=== PATIENT | male | born 1930 | race Caucasian/White ===

== ENCOUNTER 2018-05-09 15:30 | Emergency (ER) | payer OTHER ==
--- NOTE | 2018-05-09 16:16 | EDPHY ---
H & P Time Seen by Provider: 05/09/18 16:13 HPI/ROS: CHIEF COMPLAINT: Shortness of breath HISTORY OF PRESENT ILLNESS: Patient is an 87-year-old male on Eliquis with a history of pulmonary embolus x2 at the the [facility] emergency department with intermittent episodes of shortness of breath. Patient had his 1st pulmonary embolus in 2011. He was treated on Coumadin for 6 months and then the medicine was discontinued. He had a secondary pulmonary embolus in November of 2014 and was admitted to [facility]. He was started on Eliquis and has been on it since that time. Patient is visiting his family from [place]. He came to [place] and [place]. Since that time he has been having mild shortness of breath. Over the past 10 days his symptoms have worsened. He describes shortness of breath coming on suddenly. It is almost as if he is having"wheezing" episode. It then resolves. He has no associated chest pain. No leg pain or swelling. REVIEW OF SYSTEMS: 10 systems were reveiwed and are negative with the exception of the elements mentioned in the history of present illness. Past Medical/Surgical History: Includes pulmonary embolus, mitral regurgitation, hypertension, possible pulmonary hypertension, iron deficiency anemia, migraine, dyslipidemia, lower extremity edema Smoking Status: Never smoked Physical Exam: Vitals noted GENERAL: Well-appearing, in no acute distress, alert. HEENT: Eyes normal to inspection, normal pharynx, no signs of dehydration. NECK: Normal, supple. RESPIRATORY: Clear to auscultation bilaterally, no rales, rhonchi or wheezing. CVS: Regular rate and rhythm, no rubs, murmurs, or gallops. ABDOMEN: Soft, nontender, nondistended, no organomegaly. BACK: Normal to inspection, no CVA tenderness. SKIN: Normal color, no rash, warm, dry. No pallor. EXTREMITIES: No pedal edema, no calf tenderness, no Homans sign or cords, no joint swelling. NEURO/PSYCH: Alert and oriented, normal mood and affect, normal motor sensory exam. No obvious cranial nerve deficit. Constitutional: Initial Vital Signs Temperature (C) 36.3 C 05/09/18 15:35 Heart Rate 70 05/09/18 15:35 Respiratory Rate 16 05/09/18 15:35 Blood Pressure 138/80 H 05/09/18 15:35 O2 Sat (%) 91 L 12/29/18 15:35 O2 Delivery Mode Room Air Allergies/Adverse Reactions: ciprofloxacin [From Cipro] Allergy (Verified 05/09/18 15:35) ciprofloxacin HCl [From Cipro] Allergy (Verified 05/09/18 15:35) Home Medications: Medication Instructions Recorded Ascorbic Acid [Vitamin C 500 mg 2,000 mg PO DAILY 11/14/14 (*)] Flurouracil 0.5% Cr 1 vesna TP DAILY PRN 11/14/14 Furosemide [Lasix 20 MG (*)] 20 mg PO DAILY PRN 11/14/14 Herbals/Supplements -Info Only 1 tab PO AD 11/14/14 Ibuprofen [Motrin (*)] 200 mg PO Q6 PRN 11/14/14 Lisinopril [Zestril 10 mg (*)] 10 mg PO DAILY 11/14/14 Naproxen [Naprosyn] 500 mg PO BID PRN 11/14/14 Qbnkgcue-Wr-Xo Oxide 1 vesna TP DAILY PRN 11/14/14 [place]-3 Fatty Acids [Fish Oil 1000 1,000 mg PO DAILY 11/14/14 mg (*)] Omeprazole [Prilosec 20 mg] 20 mg PO DAILY 11/14/14 Prochlorperazine Maleate 10 mg PO Q6 PRN 11/14/14 [Compazine 10mg (*)] Simvastatin [Zocor] 20 mg PO HS 11/14/14 Triamcinolone 0.1% Cream (RX) 1 applic TP DAILY PRN 11/14/14 Ubidecarenone [Coenzyme Q10] 1 cap PO DAILY 11/14/14 Verapamil ER [Calan SR/ER 180MG 180 mg PO HS 11/14/14 (*)] diphenhydrAMINE [Benadryl 25 MG 25 mg PO Q6 PRN 11/14/14 (*)] Apixaban [Eliquis] 5 mg PO BID 180 Days tablet 11/16/14 Apixaban [Eliquis] 10 mg PO BID #14 tab 11/16/14 Medical Decision Making - Diagnostics Imaging Results: Imaging Impressions Chest X-Ray 05/09/18 16:51 Impression: 1. Basilar subsegmental atelectasis without acute cardiopulmonary process. 2. Nodular density measuring 1.2 cm in the retrocardiac airspace likely corresponds to a granuloma seen on old chest CT. Repeat chest CT already ordered to exclude PE. Chest/Thorax CTA 05/09/18 17:22 Impression: 1. No evidence of thrombopulmonary embolic disease. 2. Mild airways disease and minimal posterior dependent atelectasis. 3. No pneumonia or edema. Findings discussed with emergency department physician, Viji Gotti MD on May 09, 2018 at 1838 hours. ED Course/Re-evaluation: In the emergency department I discussed possible etiologies with the patient. I answered all his questions. IV was placed. Laboratory studies were obtained. EKG and chest x-ray were ordered. I reviewed the patient's medical record from November of 2014. EKG: Sinus rhythm at 68. Normal axis. Prolonged NM interval. Right bundle branch block, left anterior fascicular block I compared this EKG with an EKG from 11/13/2014. At that time the patient had a first-degree AV block as well as incomplete right bundle branch block and left anterior fascicular block. The patient's CBC was unremarkable. The chemistry panel was notable for slightly low carbon dioxide 18. Chloride is 112. Patient's D-dimer is 0.62. Initial troponin was 0.23. However, the tech informed that the blood sample was odd when she read the test. A repeat troponin was ordered. Repeat troponin 0.02. CT angiogram of the chest: Please refer the dictated report. No acute disease noted. Repeat EKG is unchanged from the 1st EKG. Repeat troponin is 0.01. I discussed the results with the patient. I answered all his questions. He was doing well on recheck. He was instructed follow up with both Cardiology and pulmonology. He was given warnings prior to leaving. Differential Diagnosis: My differential includes but is not limited to pulmonary embolus, ACS, acute DE , dysrhythmia, bronchitis, pneumonia, CHF - Data Points Laboratory Results: Laboratory Results 05/09/18 16:14 05/09/18 16:14 05/09/18 05/09/18 05/09/18 19:04 17:51 17:36 WBC RBC Hgb Hct MCV MCH MCHC RDW Plt Count MPV Neut % (Auto) Lymph % (Auto) [place] % (Auto) Eos % (Auto) Baso % (Auto) Nucleat RBC Rel Count Absolute Neuts (auto) Absolute Lymphs (auto) Absolute Monos (auto) Absolute Eos (auto) Absolute Basos (auto) Absolute Nucleated RBC Immature Gran % Immature Gran # PT INR APTT D-Dimer Sodium Potassium Chloride Carbon Dioxide Anion Gap BUN Creatinine Estimated GFR Glucose Calcium POC Troponin I 0.01 ng/mL ng/mL 0.02 ng/mL ng/mL 0.23 ng/mL H ng/mL (0.00-0.08) (0.00-0.08) (0.00-0.08) NT-Pro-B Natriuret Pep 05/09/18 05/09/18 05/09/18 16:14 16:14 16:14 WBC 7.52 10^3/uL 10^3/uL (3.80-9.50) RBC 4.88 10^6/uL 10^6/uL (4.40-6.38) Hgb 15.6 g/dL g/dL (13.7-17.5) Hct 45.9 % % (40.0-51.0) MCV 94.1 fL fL (81.5-99.8) MCH 32.0 pg pg (27.9-34.1) MCHC 34.0 g/dL g/dL (32.4-36.7) RDW 13.6 % % (11.5-15.2) Plt Count 194 10^3/uL 10^3/uL (150-400) MPV 10.4 fL fL (8.7-11.7) Neut % (Auto) 47.2 % % (39.3-74.2) Lymph % (Auto) 36.7 % % (15.0-45.0) [place] % (Auto) 12.6 % % (4.5-13.0) Eos % (Auto) 2.0 % % (0.6-7.6) Baso % (Auto) 1.1 % % (0.3-1.7) Nucleat RBC Rel Count 0.0 % % (0.0-0.2) Absolute Neuts (auto) 3.55 10^3/uL 10^3/uL (1.70-6.50) Absolute Lymphs (auto) 2.76 10^3/uL 10^3/uL (1.00-3.00) Absolute Monos (auto) 0.95 10^3/uL H 10^3/uL (0.30-0.80) Absolute Eos (auto) 0.15 10^3/uL 10^3/uL (0.03-0.40) Absolute Basos (auto) 0.08 10^3/uL 10^3/uL (0.02-0.10) Absolute Nucleated RBC 0.00 10^3/uL 10^3/uL (0-0.01) Immature Gran % 0.4 % % (0.0-1.1) Immature Gran # 0.03 10^3/uL 10^3/uL (0.00-0.10) PT 15.0 SEC SEC (12.0-15.0) INR 1.16 (0.83-1.16) APTT 31.6 SEC SEC (23.0-38.0) D-Dimer 0.62 ug/mLFEU H ug/mLFEU (0.00-0.50) Sodium 138 mEq/L mEq/L (135-145) Potassium 4.7 mEq/L mEq/L (3.5-5.2) Chloride 112 mEq/L H mEq/L (97-110) Carbon Dioxide 18 mEq/l L mEq/l (22-31) Anion Gap 8 mEq/L mEq/L (6-14) BUN 27 mg/dL H mg/dL (7-23) Creatinine 1.2 mg/dL mg/dL (0.7-1.3) Estimated GFR 58 Glucose 116 mg/dL H mg/dL (70-100) Calcium 10.2 mg/dL mg/dL (8.5-10.4) POC Troponin I NT-Pro-B Natriuret Pep 124 pg/mL pg/mL (0-450) Point of Care Test Results: Chemistry 05/09/18 05/09/18 05/09/18 19:04 17:51 17:36 POC Troponin I 0.01 ng/mL ng/mL 0.02 ng/mL ng/mL 0.23 ng/mL H ng/mL (0.00-0.08) (0.00-0.08) (0.00-0.08) Departure - Departure Disposition: Home, Routine, Self-Care Clinical Impression: Shortness of breath Condition: Good Instructions: Dyspnea (ED) Additional Instructions: You need close follow-up with your world language teacher and ultrasonic welding machine operator. Return to the emergency department with increasing chest pain, shortness of breath, fever or any other concerns. Referrals: JAMES HART [Other] - 5-7 days, call for appt.
[2018-05-09 16:58] LABS: PLATELET COUNT 194 10^3/uL (150-400)
[2018-05-09 17:16] LABS: INR 1.16 (0.83-1.16)
[2018-05-09] MEDS ORDERED: IOPAMIDOL (ISOVUE 370) 100 ML BTL IV ONE (17:42)
[2018-05-09 19:47] VITALS: BP 149/88
--- NOTE | 2018-05-09 20:16 | CPEKG ---
Test Reason : OPEN Blood Pressure : / mmHG Vent. Rate : 068 BPM Atrial Rate : 068 BPM P-R Int : 265 ms QRS Dur : 151 ms QT Int : 415 ms P-R-T Axes : 047 -42 -01 degrees QTc Int : 442 ms Sinus rhythm Prolonged AL interval RBBB and LAFB Confirmed by Viji Gotti ([id number]) on 05/09/2018 8:16:05 PM Referred By: Confirmed By:Viji Gotti
--- NOTE | 2018-05-09 20:16 | CPEKG ---
Test Reason : OPEN Blood Pressure : / mmHG Vent. Rate : 060 BPM Atrial Rate : 061 BPM P-R Int : 279 ms QRS Dur : 155 ms QT Int : 438 ms P-R-T Axes : 029 -31 -19 degrees QTc Int : 438 ms Sinus rhythm Prolonged CA interval Right bundle branch block Confirmed by Viji Gotti ([id number]) on 05/09/2018 8:16:08 PM Referred By: Confirmed By:Viji Gotti
== END 2018-05-09 19:47 | disposition home or self-care (01) ==
DX: R06.02 Shortness of breath (principal); I10 Essential (primary) hypertension; I26.99 Other pulmonary embolism without acute cor pulmonale; I35.1 Nonrheumatic aortic (valve) insufficiency; E78.5 Hyperlipidemia, unspecified; Z79.01 Long term (current) use of anticoagulants
CPT/HCPCS: 71046; 71275; 93005; 99285; Q9967; 84484-PO